=== PATIENT | female | born 1970 | race Caucasian/White ===

== ENCOUNTER 2022-10-02 15:14 | Emergency (ER) | payer OTHER ==
[~2022-10-02] VITALS: Ht 154.9 cm; Wt 97.5 kg
[2022-10-02 15:21] VITALS: BP 143/84
--- NOTE | 2022-10-02 16:00 | NUR ---
C/O BILATERAL EARACHE X2 DAYS, DENIES NVD, COUGH, FEVERS, CHILLS NKA PMH: HTN
--- NOTE | 2022-10-02 19:40 | NUR ---
PA HITCHCOCK- irrigation for patient.
[2022-10-02 20:00] VITALS: BP 143/84
--- NOTE | 2022-10-02 20:00 | NUR ---
Patient left without D/C papers.
== END 2022-10-02 20:00 | disposition home or self-care (01) ==
LOC: MED 15:14
DX: H61.23 Impacted cerumen, bilateral (principal); R03.0 Elevated blood-pressure reading, without diagnosis of hypertension
CPT/HCPCS: 99284